=== PATIENT | female | born 1965 | race Caucasian/White ===

== ENCOUNTER 2016-11-19 12:00 | Inpatient (IN) | payer OTHER ==
[~2016-11-19] VITALS: Ht 165.1 cm; Wt 59.0 kg
--- NOTE | ~2016-11-19 | A ---
[facility] Nutrition Therapy DATE: 11/21/16 Patient: ANDREW SEO Physician: JANIYA Address: [address] [place] [address] Room/Bed: [address], Zip: [place] [address] Admit Date: 11/19/16 Date of : [birth year] Height: 5 5 Weight: [phone] NUTRITIONAL ASSESSMENT: REASON: UNINTENTIONAL WEIGHT LOSS PATIENT ADMITTED FOR DETOX PMH: PANCREATITIS, HTN Anthropometrics: HT: 65", WT: 130#, BMI: 21.6, %IBW: 104% Labs: 11/21-K: 2.9, BUN: <5, CREA: 0.5, ALB: 3.4 Meds: MVI, VIT B COMPLEX, DETOX PROTOCOL, KLOR-CON Assessment: PATIENT IS A 51 Y/O FEMALE ADMITTED FOR DETOX. PATIENT IS CURRENTLY EMPLOYED, LIVES WITH HER , SMOKES 1 PPD, AND HAS DAILY USE OF ETOH AND BENZOS. SHE HAS [facility] UPON ADMIT PATIENT STATED A POOR-FAIR APPETITE WITH NO RECENT WEIGHT CHANGE. NURSING REPORTS FAIR-GOOD PO INTAKES. THERE IS NO WEIGHT HX RECORDED IN [facility]. THERE ARE NO SKIN OR GI ISSUES NOTED ATT. PATIENT IS ON A HEART HEALTHY DIET WITH NO CAFFEINE AND LARGE PORTION ENTREES. PATIENT'S BMI IS WITHIN A HEALTHY RANGE AND SHE IS 104% OF HER IBW Dx: INADEQUATE NUTRIENT INTAKE R/T CURRENT CONDITION, SUBSTANCE ABUSE AEB ABNORMAL LABS, DECREASED APPETITE Intervention: HEART HEALTHY DIET, NO CAFFEINE, LARGE ENTREES, MEDS PER MD, DETOX, PSYCH Monitoring, Evaluation and Goals: 1. ADEQUATE PO INTAKES >50% OF MEALS 2. PREVENT, CORRECT MICRO/MACRO NUTRIENT DEFICIENCIES MONITOR: WEIGHTS, LABS, PO/FLUID INTAKES Recommendations: 1. CONTINUE HEART HEALTHY DIET WITH NO CAFFEINE TOLERATED. CONSIDER D/CING LARGE PORTIONS D/T NO NUTRITIONAL NEED FOR INCREASED CALORIC INTAKE 2. ENCOURAGE ADEQUATE PO AND FLUID INTAKES 3. OBTAIN WEIGHTS ROUTINELY (EVERY 3-4 DAYS) RD TO F/U PER PROTOCOL AND PRN R/T PATIENT MILDLY COMPROMISED [facility] Therapy DATE: 11/21/16 Patient: ANDREW SEO Physician: JANIYA Address: [address] [place] [address] Room/Bed: [address], Zip: [place] [address] Admit Date: 11/19/16 Date of : [birth year] Height: 5 5 Weight: [phone] Respectfully, RUSTY MENSAH RD, LD [facility] cc: client file
--- NOTE | ~2016-11-19 | DS ---
Unit #: [id number] #: [id number] Patient: ANDREW SEO [id number] [place] [address] [id number] MR#: [id number] NAME: ANDREW SEO ROOM: [facility] Age: 51 Sex: F Admission Date: 11/19/2016 : 1965 Discharge Date: 11/22/2016 Attending Physician: Frederick Prescott M.D. Primary Care Physician: Generic Doctor Not In System DISCHARGE SUMMARY REASON FOR ADMISSION The patient is a 51-year-old white female, admitted to the acute [facility] unit for alcohol detox. HOSPITAL COURSE The patient was admitted to the [address] [place] [address] unit and continued on previously prescribed medications including Ultram, Aldactone, Coreg, and aspirin. Because of low potassium level, the patient was begun on potassium supplementation and will be provided with 2 further days of potassium supplementation upon the time of discharge. By 11/22/2016, the patient's detox was complete. She was in good spirits and agreed with plan for followup in the chemical dependency intensive outpatient program provided by this facility. As per her request, discharge was ordered. FINAL DIAGNOSES Alcohol use disorder, hypokalemia, chronic pain, hypertension. DISPOSITION ON DISCHARGE The patient is discharged on the following medications: Coreg 3.125 mg daily for hypertension, aspirin 81 mg daily for anticoagulation, Aldactone 25 mg once daily for hypertension, Ultram 50 mg b.i.d. p.r.n. pain, Klor-Con M20 20 mEq b.i.d. for potassium supplementation. DISCHARGE INSTRUCTIONS No dietary or physical restrictions were placed upon the patient at the time of discharge. FOLLOWUP Followup will take place through the auspices of [facility] and chemical dependency treatment resources including the chemical dependency intensive outpatient program provided by this facility. PROGNOSIS The patient's prognosis is considered good. Dictated by... Frederick Prescott M.D. CB/alvin TD: 11/22/2016 15:52 JOB #: [id number] Unit #: [id number] #: [id number] Patient: ANDREW SEO DISCHARGE SUMMARY Page 1 of 1 X Frederick Prescott MD DISCHARGE SUMMARY
--- NOTE | ~2016-11-19 | PA ---
Unit #: [id number] #: [id number] Patient: ANDREW SEO [id number] [facility] [address] [place] [address] [id number] I MR#: [id number] NAME: ANDREW SEO ROOM: [facility] Age: 51 Sex: F Admission Date: 11/19/2016 : 1965 Date of Assessment: 11/20/2016 Attending Physician: Frederick Prescott M.D. Admitting Physician: Frederick Prescott M.D. Primary Care Physician: Generic Doctor Not In System PSYCHIATRIC ASSESSMENT IDENTIFYING INFORMATION The patient is a 51-year-old white female admitted to the [facility] unit with a history of sedative hypnotic and alcohol abuse. CHIEF COMPLAINT None given. INFORMANT The patient, reliability is good. HISTORY OF PRESENT ILLNESS The patient is a 51-year-old white female with a history of alcohol and sedative hypnotic abuse. The patient reports that she was treated for this condition approximately 10 years ago but has recently relapsed. The patient reports that she is fearful that she will lose her job. She continues to use. She denies current suicidal or homicidal ideation. Her primary care physician does prescribe Zoloft 200 mg daily for the patient on which she states she has done rather well. The patient reports no current suicidal or homicidal ideation and denies recent changes in sleep or appetite. She denies any history of complicated substance withdrawal. The patient was with feelings of hopelessness and helplessness related to her recent relapse. The patient had reported to her that she was having suicidal ideation of a passive type and was reporting that she had means to suicide. When seen today the patient denies any suicidal thinking and is pleasant and cooperative and future oriented during interview. PAST PSYCHIATRIC HISTORY As above. PAST MEDICAL HISTORY Significant for a history of hypertension and chronic pain. MEDICATIONS 1. Ambien CR 2. Xanax 3. Aspirin 4. Coreg 5. Spironolactone 6. Tramadol ALLERGIES None. Unit #: [id number] #: [id number] Patient: ANDREW SEO FAMILY HISTORY The patient reports an extensive family history of substance abuse. SOCIAL HISTORY The patient lives with her . She is employed at [employer]. She reports substance use as noted previously and (1)____ abuse of alcohol and sedative hypnotic. MEDICATIONS She is a smoker. MENTAL STATUS EXAMINATION At this time reveals the patient to be a well-developed, well-nourished white female, appearing her stated age. She is in no apparent physical distress at the time of examination. She is awake, alert, and oriented in all spheres. Her mood is mildly dysphoric. Her affect is congruent. Speech is generally relevant and coherent. There are no gross deficits in memory or cognition noted. Intelligence is judged to be in the average range based on fund of knowledge. The patient is cooperative throughout the interview. She is currently denying suicidal or homicidal ideation and denies any psychotic symptoms. Her judgment and insight appear to be reasonably intact. ASSETS AND LIABILITIES ASSETS: Motivation for change. LIABILITIES: Lack of resources. DIAGNOSTIC IMPRESSION 1. Alcohol use disorder. 2. Sedative hypnotic use disorder. 3. Hypertension. 4. Chronic pain. TREATMENT PLAN The patient remains hospitalized for safety and stabilization. A routine detoxification protocol for alcohol and sedative hypnotics has been initiated. The patient will participate in appropriate wilkerson and milieu activities with an estimate length in the hospital of three to five days. Dictated by... Frederick Prescott M.D. CB/doroteo TD: 11/20/2016 23:17 JOB #: [id number] Unit #: [id number] #: [id number] Patient: ANDREW SEO PSYCHIATRIC ASSESSMENT Page 1 of 1 X Frederick Prescott MD X PSYCHIATRIC ASSESSMENT
--- NOTE | ~2016-11-19 | HP ---
Unit #: [id number] #: [id number] Patient: ANDREW SEO [id number] [place] [address] [id number] I MR#: [id number] NAME: ANDREW SEO ROOM: [facility] Age: 51 Sex: F Admission Date: 11/19/2016 : 1965 Attending Physician: Frederick Prescott M.D. Admitting Physician: Frederick Prescott M.D. Primary Care Physician: Generic Doctor Not In System HISTORY AND PHYSICAL HISTORY OF PRESENT ILLNESS The patient is a 51-year-old female admitted to [facility] on 11/19/2016 for alcohol and drug abuse. PAST MEDICAL HISTORY 1. CHF. 2. Chronic pancreatitis. PAST SURGICAL HISTORY 1. Whipple procedure. 2. x 2. 3. Cholecystectomy. The patient denies. SOCIAL HISTORY She is employed at [employer]. She lives with herself, smokes one pack of cigarettes daily. Drinks 1/2 pint per day and abuses Ambien and Xanax. FAMILY MEDICAL HISTORY Noncontributory. ALLERGIES No known drug allergies. CURRENT MEDICATIONS 1. Tramadol 2. Spironolactone 3. Coreg 4. Aspirin 5. Xanax 6. Ambien REVIEW OF SYSTEMS CONSTITUTIONAL: No fever or chills. HEENT: Denies any sore throat, ear pain or runny nose. CARDIOVASCULAR: Denies chest pain, irregular heart rhythm or palpitations. CHEST: Denies shortness of breath or cough. No hemoptysis. GASTROINTESTINAL: Denies nausea, vomiting, diarrhea or chronic constipation. ENDOCRINE: Denies history of increased thirst or urination. No recent significant weight loss or gain. GENITOURINARY: Denies dysuria, frequency, or hematuria. SKIN: Denies any rashes. Unit #: [id number] #: [id number] Patient: ANDREW SEO HEMATOLOGIC: Denies history of increased bleeding or bruising. MUSCULOSKELETAL: Denies any hot, swollen joints. No generalized muscle pain. NEUROLOGIC: Denies problems with vision or speech. No frequent, severe headaches. No numbness, tingling or weakness in any extremities. Denies loss of bladder or bowel control. PHYSICAL EXAM GENERAL: She is awake, alert and oriented in no acute distress. VITAL SIGNS: Temperature 95.8, heart rate 63, respiration 15, blood pressure 108/79. HEIGHT: 5'5". WEIGHT: 130 pounds. SKIN: Warm and dry without rash or lesion. HEENT: Normocephalic. TMs not viewed. Oral and nasal passages clear. Conjunctivae clear. PERRLA. EOMs intact. NECK: Supple without lymphadenopathy or thyromegaly. HEART: Regular rate and rhythm without murmur. LUNGS: Clear. ABDOMEN: Soft, nontender. : Not done. EXTREMITIES: No evidence of cyanosis, clubbing or edema. Moves all without focal deficit. NEUROLOGICAL: Grossly within normal limits. Cranial Nerves: II: Visual granger are intact. III, IV AND : Extraocular movements are intact. Pupils are equal, round and reactive to light. V: Facial sensation is grossly normal. VII: Facial movements and expression are normal. VIII: Auditory acuity grossly intact. IX, X: Uvula is midline. Phonation is normal. XI: Patient shrugs shoulders and turns head normally. XII: Tongue protrudes in the midline. Sensory and Motor Function: Sensory and motor sensation is grossly normal. Motor: moves all extremities well. IMPRESSION 1. Psychiatric admission. 2. CHF. 3. Chronic pancreatitis. 4. Alcohol and drug abuse. RECOMMENDATIONS Psychiatric per psychiatrist. MEDICAL: No contraindication to participate in facility activities. MEDICAL PROGNOSIS Fair. MEDICAL CONDITION Stable. Dictated by... Safia Sommer A.P.R.N. Unit #: [id number] #: [id number] Patient: ANDREW SEO MATT/doroteo TD: 11/21/2016 01:47 JOB #: [id number] HISTORY AND PHYSICAL Page 1 of 1 X SAFIA SOMMER APRN HISTORY AND PHYSICAL
--- NOTE | ~2016-11-19 | PN ---
Unit #: [id number] #: [id number] Patient: ANDREW SEO [id number] [facility] [address] [place] [address] [id number] I MR#: [id number] NAME: ANDREW SEO ROOM: [facility] Age: 51 Sex: F Admission Date: 11/19/2016 : 1965 Attending Physician: Frederick Prescott M.D. Admitting Physician: Frederick Prescott M.D. Primary Care Physician: Generic Doctor Not In System [facility] PROGRESS NOTES DATE 11/21/2016 DISCUSSION The patient has significant lab abnormalities related her abuse of alcohol including elevated MCV, low total protein and Albumen as well as elevated liver functions ALT and alkaline phosphatase. She states that she is "feeling kind of crappy" today. The patient actually lives in the [facility] and would be a good candidate for participation in the intensive outpatient program following discharge. Dictated by... Frederick Prescott M.D. CB/doroteo TD: 11/21/2016 22:21 JOB #: [id number] [facility] PROGRESS NOTES Page 1 of 1 X Frederick Prescott MD X PROGRESS NOTE
[2016-11-20 12:58] LABS: URINE APPEARANCE CLEAR; URINE BLOOD NEG (NEG); URINE COLOR DK YELLOW; URINE GLUCOSE NEG (NEG); URINE KETONE TRACE (NEG); URINE LEUKOCYTE ESTERASE 2+ (NEG); URINE NITRATE NEG (NEG); URINE PH 5.5 (5-8); URINE PROTEIN NEG (NEG)
[2016-11-20 13:00] LABS: URINE BACTERIA AUWI NEG (NEGATIVE); URINE SQUAMOUS EPITHELIAL CELL OCC /[HPF]
[2016-11-20 13:03] LABS: URINE BILIRUBIN NEG (NEG)
[2016-11-20 13:05] LABS: AMPHETAMINE NEG (NEG); BARBITURATES NEG (NEG); BENZODIAZEPINES POS (NEG); COCAINE NEG (NEG); MARIJUANA NEG (NEG); OPIATES NEG (NEG); TRICYCLIC ANTIDEPRESSANTS NEG (NEG); U METHADONE NEG (NEG)
[2016-11-21 09:45] LABS: BASOPHIL# 0.1 X10e3 (0-0.3); BASOPHIL% 0.7 % (0-2.5); EOSINOPHIL# 0.7 X10e3 (0-0.7); EOSINOPHIL% 10.5 % (0.0-7.0); HEMATOCRIT 37.2 % (35.0-45.0); HEMOGLOBIN 12.7 gm/dL (12.0-16.0); LYMPHOCYTE# 1.4 X10e3 (1.0-3.5); MEAN CELL VOLUME 96.9 FL (83-96); MEAN CORPUSCULAR HEMOGLOBIN 33.2 PG (28-34); MEAN CORPUSCULAR HGB CONC 34.2 g/dL (30-36); MEAN PLATELET VOLUME 9.4 FL (6.5-11.5); MONOCYTE# 0.4 X10e3 (0-1.0); MONOCYTE% 5.8 % (3.0-12.0); NEUTROPHIL# 4.2 X10e3 (1.5-7.1); PLATELET COUNT 244 X10e3 (140-420); RED BLOOD COUNT 3.84 X10e (3.90-5.30); RED CELL DISTRIBUTION WIDTH 12.9 % (11.0-15.5); WHITE BLOOD COUNT 6.7 X10e3 (4.0-10.5)
[2016-11-21 09:48] LABS: DIFF IND NO
[2016-11-21 10:09] LABS: ALBUMIN SERUM 3.4 g/dL (3.5-5.0); ALKALINE PHOSPHATASE 129 U/L (32-92); ALT (SGPT) 41 U/L (10-40); AST (SGOT) 41 U/L (10-42); BILIRUBIN,TOTAL 0.6 mg/dL (0.2-2.0); CALCIUM SERUM 8.6 mg/dL (8.4-10.2); CARBON DIOXIDE 25 mmol/L (22-31); CHLORIDE 110 mmol/L (100-111); CREATININE SERUM 0.5 mg/dL (0.6-1.4); GLOM FILT RATE Estimated 111.3 mL/min (>60); GLUCOSE FASTING 106 mg/dL (70-110); PROTEIN TOTAL SERUM 5.6 g/dL (6.0-8.3); SODIUM 144 mmol/L (135-145)
[2016-11-21 10:11] LABS: BLOOD UREA NITROGEN <5 mg/dL (9-23)
[2016-11-21 10:13] LABS: POTASSIUM 2.9 mmol/L (3.5-5.1)
== END 2016-11-22 15:53 | DRG 897 ==
LOC: P1E 14:46
PROVIDERS: Specialist
PROC: HZ2ZZZZ Detoxification Services for Substance Abuse Treatment (ICD-10-PCS; principal; 2016-11-19)
DX: F10.10 Alcohol abuse, uncomplicated (principal); I10 Essential (primary) hypertension; F13.10 Sedative, hypnotic or anxiolytic abuse, uncomplicated; G89.29 Other chronic pain
CPT/HCPCS: 80053; 80307; 81003; 85025; 86592